=== PATIENT | female | born 2000 | race African-American/Black ===

== ENCOUNTER 2021-01-02 04:51 | Emergency (ER) | payer SELFPAY ==
[~2021-01-02] VITALS: Ht 162.6 cm; Wt 61.0 kg
[2021-01-02] MEDS ORDERED: IBUPROFEN 600MG TABLET PO ONE (05:15)
[2021-01-02] MEDS ORDERED: BACITRACIN ZINC OINT UDPKT TOP ONE (05:15)
[2021-01-02] MEDS ORDERED: LIDOCAINE HCL/PF 1% 10 MG/ML 5ML VIAL IJ ONE (05:15)
[2021-01-02] MEDS ORDERED: TETANUS, DIPHTHERIA, PERTUSSIS VAC/PF 0.5ML (>7YR OLD) IM ONE (05:15)
[2021-01-02] MEDS ORDERED: IBUP-2029 MT (05:21)
[2021-01-02] MEDS ORDERED: BO1 TP (05:21)
[2021-01-02 06:11] VITALS: BP 110/74
== END 2021-01-02 06:56 | disposition home or self-care (01) ==
LOC: ER 04:51
DX: S61.210A Laceration without foreign body of right index finger without damage to nail, initial encounter (principal); W25.XXXA Contact with sharp glass, initial encounter; Y93.89 Activity, other specified; Z23 Encounter for immunization; Y92.89 Other specified places as the place of occurrence of the external cause
CPT/HCPCS: 29130; 73130; 90471; 90715; 99283; J3490